=== PATIENT | female | born 1985 | race African-American/Black ===

== ENCOUNTER 2021-01-11 14:12 | Emergency (ER) | payer MEDICAID, SELFPAY ==
[2021-01-11 14:31] VITALS: BP 151/97; PULSE 95; RESP 16; TEMP 36.3; O2SAT 98; BMI 25.1
--- NOTE | 2021-01-11 15:08 | ED_ITS ---
HPI - Skin/Abscess/Foreign Bdy General Chief complaint: Skin/Abscess/Foreign Body Stated complaint: RASH Time Seen by Provider: 01/11/21 15:04 Source: patient Mode of arrival: ambulatory Limitations: no limitations History of Present Illness HPI narrative: 35-year-old female with a past medical history of eczema here with complaints of itching and painful rash to her face and neck x1 week. No fevers, chills, drainage. She was seen at a walk-in urgent care 2 days ago and prescribing triamicolone topical cream. She has been using this but she feels like the rash is only worsening. Related Data Previous Rx's Medication Instructions Recorded clindamycin HCl 300 mg PO BID 7 Days #14 cap 01/11/21 mupirocin 1 appl TOPICAL TID #22 g 01/11/21 prednisone 40 mg PO DAILY #10 tab 01/11/21 Allergies Allergy/AdvReac Type Severity Reaction Status Date / Time No Known Allergies Allergy Unverified 04/03/20 15:42 Review of Systems Review of Systems: Yes all other systems are reviewed and are negative Constitutional: Constitutional: Reports no additional constitutional complaints, Denies body ache(s), Denies chills, Denies fever(s), Denies headache(s) and Denies weakness Eyes: Eyes: Reports no additional eye complaints and Denies change in vision ENT: Reports system reviewed and no additional complaints, except as documented, Denies dizziness, Denies headache(s), Denies nasal congestion, Denies nasal discharge and Denies neck pain Cardiovascular: Cardiovascular: Reports no additional cardiovascular complaints, Denies chest pain, Denies leg edema and Denies dyspnea Respiratory: Respiratory: Reports no additional respiratory complaints, Denies cough and Denies dyspnea Gastrointestinal: Gastrointestinal: Reports no additional gastrointestinal complaints, Denies abdominal pain, Denies diarrhea, Denies nausea and Denies vomiting Genitourinary: Genitourinary: Reports no additional female genitourinary complaints and Denies urinary incontinence Musculoskeletal: Musculoskeletal: Reports no additional musculoskeletal complaints, Denies back pain, Denies arthralgias, Denies joint swelling, Denies neck pain, Denies numbness and Denies tingling Integumentary/Breasts: Skin/Breast: Reports system reviewed and no additional complaints, except as docu and Reports rash Neurologic: Reports system reviewed and no additional complaints, except as documented, Denies Abnormal speech present, Denies dizziness, Denies headache(s), Denies numbness, Denies tingling and Denies weakness PMFSH Past Medical History Attestation statement: The following information was validated with the patient. Source: old records reviewed and nursing notes reviewed Social History Social History Advance Directives: Yes Advance Directives Information Provided: No Advance Directives on File: No Patient : No Physical Exam Vital Signs: Vital Signs: Last Vital Signs Temp 97.3 F 01/11/21 14:31 Pulse 95 01/11/21 14:31 Resp 16 01/11/21 14:31 BP 151/97 H 01/11/21 14:31 Pulse Ox 98 01/11/21 14:31 Body Mass Index 25.1 Const: General: cooperative, healthy appearing, comfortable and no acute distress Orientation/consciousness: patient oriented x3 Limitations: no limitations HENMT: Head: Yes normal to inspection Ears: hearing grossly normal bilatera lly General nose exam: Normal external nose present Face and sinus: Yes normal facial exam Mouth: Normal oral and palatal mucosa present Throat: Yes posterior oropharynx normal Eyes: General: appearance normal, both eyes and all related structures Pupils: Equal, round and reactive pupils present Neck: Neck: Yes normal visual inspection Chest: Chest palpation & inspection: normal inspection of the chest Resp: Effort & Inspection: normal respiratory effort Auscultation: clear to auscultation bilaterally Cardio: Rate: regular rate Rhythm: regular rhythm Peripheral pulses: Peripheral pulses 2+ throughout GI: Inspection: Yes normal to inspection Palpation (GI): Soft to palpation and nontender Auscultation: normal bowel sounds Back/Spine/Pelvis: Thoracic/Lumbar Spine: thoracic and lumbar spine normal to inspection Skin: Other: Neuro: General: patient oriented x3, no focal motor deficits and normal sensation to monofilament Cranial nerves: Yes Equal, round and reactive pupils present Cognition (Neuro): normal cognition Speech: No Abnormal speech present Gait exam (Neuro): Normal gait present Motor exam (neuro): 5/5 motor strength present throughout Extrem: General: Yes normal to inspection Course Course Course Narrative: 35 yo female here with complaints of itching/burning rash to neck/face x 1 week despite topical steroid cream. On exam appears to have underlying contact dermatitis with superimposed bacterial infection. D/w with Dr Bermudez who saw the patient and agrees with plan for steroid burst, oral antibiotics and topical antibiotic ointment. reviewed worrisome signs and symptoms and when to return to the emergency department. Comfortable discharge home. Discharge Plan Discharge Clinical Impression: Cellulitis, Contact dermatitis Patient Disposition: Home, Self-Care Instructions: Contact Dermatitis (ED), Cellulitis (ED) Additional Instructions: keep area moisturized Limit hot water in shower, every other day shower DO no pick at skin Return for fever, worsening rash Prescriptions: New prednisone 20 mg tablet 40 mg PO DAILY Qty: 10 RF: 0 clindamycin HCl 300 mg capsule 300 mg PO BID 7 Days Qty: 14 RF: 0 mupirocin 2 % ointment 1 appl topical TID Qty: 22 RF: 0 Referrals: Physician,Unknown [Primary Care Provider] - 2 days Interventions: ED Discharge Assessment Last Done: 01/11/21 15:22 Discharge Date/Time: 01/11/21 15:24
== END 2021-01-11 15:24 | disposition home or self-care (01) ==
PROVIDERS: Emergency Provider Internal Medicine
DX: L25.9 Unspecified contact dermatitis, unspecified cause (principal); L03.221 Cellulitis of neck
CPT/HCPCS: 99283

== ENCOUNTER 2022-02-06 10:41 | Emergency (ER) | payer MEDICAID, SELFPAY ==
[2022-02-06 11:24] VITALS: BP 142/92; PULSE 79; RESP 18; TEMP 36; O2SAT 100; BMI 23.3
--- NOTE | 2022-02-06 14:58 | ED_ITS ---
HPI - Dental/Oral General Chief complaint: Dental/Oral Stated complaint: Dental Abscess Time Seen by Provider: 02/06/22 13:51 Source: patient Mode of arrival: ambulatory Limitations: no limitations History of Present Illness HPI Narrative: 36-year-old female here with complaints of right upper facial swelling noticed this morning with waking. Patient reports last 2 days she had right upper dental pain. She has tried to call dentist but was unable to get in to see them. She denies any fevers, chills, vision changes, runny nose, sore throat, cough. No difficulty swallowing or breathing. Related Data Previous Rx's Medication Instructions Recorded clindamycin HCl 300 mg capsule 300 mg PO BID 7 days #14 caps 01/11/21 mupirocin 2 % topical ointment 1 appl topical TID #22 grams 01/11/21 prednisone 20 mg tablet 40 mg PO DAILY #10 tabs 01/11/21 clindamycin HCl 300 mg capsule 300 mg PO TID #21 caps 02/06/22 naproxen 500 mg tablet 500 mg PO BID PRN pain #30 tabs 02/06/22 Allergies Allergy/AdvReac Type Severity Reaction Status Date / Time No Known Allergies Allergy Verified 02/06/22 11:27 Review of Systems Review of Systems: Yes all other systems are reviewed and are negative Constitutional: Constitutional: Reports no additional constitutional complaints, Denies body ache(s), Denies chills, Denies fever(s), Denies headache(s) and Denies weakness Eyes: Eyes: Reports no additional eye complaints and Denies change in vision ENT: Reports system reviewed and no additional complaints, except as documented, Reports dental pain, Denies dizziness, Reports facial pain, Denies headache(s), Denies nasal congestion, Denies nasal discharge and Denies neck pain Cardiovascular: Cardiovascular: Reports no additional cardiovascular co mplaints, Denies chest pain, Denies leg edema and Denies dyspnea Respiratory: Respiratory: Reports no additional respiratory complaints, Denies cough and Denies dyspnea Gastrointestinal: Gastrointestinal: Reports no additional gastrointestinal complaints, Denies abdominal pain, Denies diarrhea, Denies nausea and Denies vomiting Genitourinary: Genitourinary: Reports no additional female genitourinary complaints and Denies urinary incontinence Musculoskeletal: Musculoskeletal: Reports no additional musculoskeletal complaints, Denies back pain, Denies arthralgias, Denies joint swelling, Denies neck pain, Denies numbness and Denies tingling Integumentary/Breasts: Skin/Breast: Reports system reviewed and no additional complaints, except as docu and Denies rash Neurologic: Reports system reviewed and no additional complaints, except as documented, Denies Abnormal speech present, Denies dizziness, Denies headache(s), Denies numbness, Denies tingling and Denies weakness PMFSH Past Medical History Attestation statement: The following information was validated with the patient. Source: old records reviewed and nursing notes reviewed Social History Social History Patient Tobacco Use Status: Never used Tobacco Use of substances other than those prescribed or required for medical reasons: No Substance Use Type: Marijuana Advance Directives: No Advance Directives Information Provided: No Physical Exam Vital Signs: Vital Signs: Last Vital Signs Temp 96.8 F 02/06/22 11:24 Pulse 79 02/06/22 11:24 Resp 18 02/06/22 11:24 BP 142/92 H 02/06/22 11:24 Pulse Ox 100 02/06/22 11:24 O2 Del Method 02/06/22 11:24 BMI result Body Mass Index 23.3 Const: General: cooperative, healthy appearing, comfortable and no acute distress Orientation/consciousness: patient oriented x3 Limitations: no limitations HEENT: Head: Yes normal to inspection Head images: 1. There is swelling and tenderness. There is no palpable abscess, induration or fluctuance to drain. Ears: hearing grossly normal bilaterally General nose exam: Normal external nose present Face and sinus: Yes normal facial exam Mouth: Normal oral and palatal mucosa present Teeth and gingiva: caries (Extensive) Teeth image: 1. Tooth is broken. Nerve root is exposed. At the base of the gum line there is redness, swelling and tenderness. There is no obvious abscess Throat: Yes posterior oropharynx normal Eyes: General: appearance normal, both eyes and all related structures Pupils: Equal, round and reactive pupils present Neck: Neck: Yes normal visual inspection Chest: Chest palpation & inspection: normal inspection of the chest Resp: Effort & Inspection: normal respiratory effort Auscultation: clear to auscultation bilaterally Cardio: Rate: regular rate Rhythm: regular rhythm Peripheral pulses: Peripheral pulses 2+ throughout GI: Inspection: Yes normal to inspection Palpation (GI): Soft to palpation and nontender Auscultation: normal bowel sounds Back/Spine/Pelvis: Thoracic/Lumbar Spine: thoracic and lumbar spine normal to inspection Skin: General skin exam: no rashes or lesions noted Neuro: General: patient oriented x3, no focal motor deficits and normal sensation to monofilament Cranial nerves: Yes Equal, round and reactive pupils present Cognition (Neuro): normal cognition Speech: No Abnormal speech present Gait exam (Neuro): Normal gait present Motor exam (neuro): 5/5 motor strength present throughout Extrem: General: Yes normal to inspection Course Course Course Narrative: Reviewed worrisome signs and symptoms of when to return to the emergency department. Comfortable discharge home. MDM - Dental/Oral MDM Narrative Medical decision making narrative: 36-year-old female here with dental pain for few days with waking with right facial swelling. Exam is consistent with cellulitis which is likely secondary to dental infection. There is no drainable abscess seen on exam or felt. Patient is overall nontoxic. She has no trismus. No evidence of Felipe's angina. Will start on oral antibiotics and recommend she follow-up with dental outpatient. Medical Records Attestation: I reviewed the patient's medical records. Lab Data Attestation: I reviewed the patient's lab results. Discharge Plan Discharge Clinical Impression: Dental abscess Patient Disposition: Home, Self-Care Instructions: Dental Abscess (ED) Additional Instructions: Kiana antonio See dental clinic list Prescriptions: New clindamycin HCl 300 mg capsule 300 mg PO TID Qty: 21 0RF naproxen 500 mg tablet 500 mg PO BID PRN (Reason: pain) Qty: 30 0RF No Action prednisone 20 mg tablet 40 mg PO DAILY Qty: 10 0RF clindamycin HCl 300 mg capsule 300 mg PO BID 7 Days Qty: 14 0RF mupirocin 2 % ointment 1 appl topical TID Qty: 22 0RF Referrals: [facility] [Primary Care Provider] - Interventions: ED Discharge Assessment Last Done: 02/06/22 15:13 Discharge Date/Time: 02/06/22 15:13
== END 2022-02-06 15:13 | disposition home or self-care (01) ==
LOC: HO.ED 15:02
PROVIDERS: Emergency Provider Student in an Organized Health Care Education/Training Program
DX: K04.7 Periapical abscess without sinus (principal); K08.89 Other specified disorders of teeth and supporting structures
CPT/HCPCS: 99283

== ENCOUNTER 2024-07-03 09:03 | Outpatient (REF) | payer MEDICAID, SELFPAY ==
[2024-07-03 11:28] LABS: Alanine Aminotransferase 17 U/L (0-31); Albumin Level 3.8 g/dL (3.5-5.0); Alkaline Phosphatase 44 U/L (39-117); Anion Gap 6 (12-20); Aspartate Amino Transferase 23 U/L (5-31); Bilirubin Total 0.5 mg/dL (0.0-1.0); Blood Urea Nitrogen 11 mg/dL (9-16); Calcium 8.5 mg/dL (8.4-10.2); Carbon Dioxide 29 mmol/L (22-29); Chloride 107 mmol/L (96-108); Estimated Glomerular Filt Rate > 60; Glucose Random 67 mg/dL (60-115); Potassium 3.4 mmol/L (3.3-5.1); Sodium 139 mmol/L (135-145); Total Protein 6.5 g/dL (6.5-8.0)
[2024-07-03 11:55] LABS: HBS Num1 > 1000.00 mIU/mL (0-7.99); HBc Num1 0.05 S/CO (0.00-0.79); HBsAGNum1 0.33 S/CO (0.00-0.99); HIV AB/AG Nonreactive (Nonreactive); HIV Num 1 0.06 S/CO (0.00-0.99); Hepatitis B Core Antibody Nonreactive (Nonreactive); Hepatitis B Surface Antigen Negative (Negative); ~HepC Num1 0.08 S/CO (0.00-0.79); ~Hepatitis B Surface Antibody REACTIVE (Nonreactive); ~Hepatitis C Antibody Nonreactive (Nonreactive)
[2024-07-03 11:59] LABS: Syphilis Screen Reactive (Nonreactive)
[2024-07-03 12:01] LABS: Creatinine Urine 98.94 mg/dL
[2024-07-03 16:03] LABS: CT PCR NOT DETECTED (Not Detect.); NG PCR NOT DETECTED (Not Detect.)
[2024-07-17 09:16] LABS: RPR Quantitative Reactive 1:2 (Nonreactive); T.Pallidum Particle Agg Test Reactive (Nonreactive)
== END 2024-07-03 09:04 | disposition home or self-care (01) ==
LOC: HO.HHCL 09:03
PROVIDERS: Visit Provider Nurse Practitioner
DX: Z11.3 Encounter for screening for infections with a predominantly sexual mode of transmission (principal); I10 Essential (primary) hypertension
CPT/HCPCS: 36415; 80053; 82043; 82570; 86592; 86704; 86706; 86780; 86803; 87340; 87389; 87491; 87591

== ENCOUNTER 2024-12-03 12:08 | Outpatient (REF) | payer MEDICAID, SELFPAY ==
--- OUTSIDE RECORDS SUMMARY | 2024-12-03 12:40 | XMS_ITS | Clinical Summary ---
Author Organization [employer] Address [address] [facility] [address] 7t [place] [address] Care Team Providers Care Valver Name Role Phone Jud Freitas NP Primary Care Provider [phone] Allergies Active Allergy Reactions Criticality Noted Date Comments Fish-Derived Products Unknown 09/29/2010 Medications * This document contains information received from the source organization and may not represent a complete record from that organization. Blood Pressure kitIndications:P rimary hypertension 1 each 2 times daily. 1 kit 06/13/20 24 025 Active baclofen (Lioresal) 10 MG tabletIndication s:Musculoskeleta l back pain Take 1 tablet (10 mg) by mouth 3 times daily for 15 days. 45 tablet 06/13/20 24 Active chlorthalidone (Hygroton) 25 MG tabletIndication s:Primary hypertension Take 0.5 tablets (12.5 mg) by mouth Once per day. 30 tablet 3 12/04/19 25 Active hydrOXYzine HCl (Atarax) 25 MG tabletIndication s:Anxiety Take 1 tablet (25 mg) by mouth if needed in the morning and at bedtime for itching. 60 tablet 1 12/04/19 25 Active ibuprofen 800 MG tablet Take 1 tablet (800 mg) by mouth every 8 (eight) hours if needed for moderate pain. 60 tablet 1 12/04/19 25 Active hydrOXYzine HCl (Atarax) 25 MG tabletIndication s:Anxiety Take 1 tablet (25 mg) by mouth if needed in the morning and at bedtime for itching. 60 tablet 1 06/13/20 24 025 Discontinued(Re order (will not trigger notification to Pharmacy)) chlorthalidone (Hygroton) 25 MG tabletIndication s:Primary hypertension Take 0.5 tablets (12.5 mg) by mouth Once per day. 15 tablet 1 06/13/20 24 025 Discontinued(Re order (will not trigger notification to Pharmacy)) Active Problems Problem Noted Date Diagnosed Date History of syphilis 08/23/2024 Overview (08/23/2024): Treated in 2019 with 3 doses of PCN per Katarina with DPH. Titer following this was 1:8 Sensation of plugged ear on right side Assessment & Plan (07/20/2024 10:27 AM EST): Debrox prescribed she will have to come back for ear lavage Non-recurrent acute serous otitis media of right ear 07/20/2024 Assessment & Plan (07/20/2024 10:27 AM EST): Acetaminophen PRN Augmentin for 7 days Sickle cell trait 12/22/2022 Eczema 12/19/2012 Encounters Date Type Department Care Team Description 12/03/2024 11:00 AM EDT Office Visit [facility] [address] [place] [address] [phone] Pain in both thighs (Primary Dx); Primary hypertension; Anxiety; Encounter for other general counseling or advice on contraception 12/03/[address] [facility] [address] [place] [phone] Jud Freitas NP Nurse Triage 09/28/2024 Population Health Risk Score Community Care [facility] ([facility]) Department [address] [place] [address] [phone] Provider, Population Health Generic 09/06/[address] [facility] [address] [place] [phone] Jud Freitas NP Care Coordination ([address] Raegan Moreno telephone call ) 09/06/[address] [facility] [address] [place] [phone] Jud Freitas NP Care Coordination ([address] Raegan Moreno telephone call outreach) from Last 3 Months Immunizations Immunization Administration Dates Next Due DTP 09/16/1991, 9,02/16/1988,1987,1987 Hep B, Adolescent or Pediatric 08/19/1999,1998,01/12/1999 Hib (HbOC) 03/18/1989 IPV 09/16/1991, 9,1987,1987 Influenza, IIV3, injectable 05/01/2008 MMR 03/22/1995,10/25/1988 TD (adult), 2 Lf tetanus tox oid, preservative free, adsorbed 01/02/1999 Tdap 02/19/2019 Family History Medical History Relation Name Comments Asthma Brother Diabetes Maternal Grandmother Sickle cell anemia Mother Relation Name Status Comments Brother Father Maternal Grandmother Mother Social History Tobacco Use Types Packs/Day Years Used Date Smoking Tobacco: Some Days Cigarettes Tobacco Cessation:Ready to Q uit: Not Asked; Counseling Given: Not Answered Alcohol Use Standard Drinks/Week Comments Yes 0 (1 standard drink = 0.6 oz pur e alcohol) Alcohol Answer Date Recorded How often do you have a drink containing alcohol ? 2 06/13/2024 How many drinks containing a lcohol do you have on a typical day when you are drinking? 3 06/13/2024 How often do you have six or more drinks on one occasion? 2 06/13/2024 Depression Answer Date Recorded Patient Health Questionnaire-9 Score 4 06/13/2024 Patient Health Questionnaire-9 Score 4 06/13/2024 Last PHQ-9: Questionnaire Data Not on file 1 08/13/2023 Housing Stability Answer Date Recorded What is your housing situation today? I do not have housing (Staying with others, in a hotel, in a fdc, living outside on the street, on a beach, in a car, or in a park 06/04/[address] you li ve. Do you have problems with any of the following? None of the above 06/04/2024 Food Insecurity Answer Date Recorded Within the past 12 months, y ou worried that your food would run out before you got money to buy more: Sometimes True 2023 Within the past 12 months,th e food you bought just didn't last and you didn't have enough money to get more: Sometimes True 06/05/2024 Transportation Answer Date Recorded In the past 12 months, has l ack of transportation kept you from medical appts, meetings, work or from getting things needed for daily living? No 06/04/2024 Utilities Answer Date Recorded In the past 12 months, has t he electric, gas, oil or water company threatened to shut off services in your home? No 06/04/2024 Depression Answer Date Recorded Patient Health Questionnaire-2 Score 1 06/13/2024 Internet Access Answer Date Recorded Internet Access Q1 Yes 06/04/2024 Internet Access Q2 Not on file 06/04/2024 Comments Unknown Sex and Gender Information Value Date Recorded Sex Assigned at Female 05/17/2022 10:14 AM EDT Legal Sex Female 10:14 AM EDT Gender Identity Female 05/17/2022 10:14 AM EDT Sexual Orientation Choose not to disclose 2021 10:14 AM EDT Last Filed Vital Signs Vital Sign Reading Time Taken Comments Blood Pressure 155/88 12/03/2024 11:40 AM EDT Pulse 69 12/03/2024 11:40 AM EDT Temperature 36.6 ??C (97.9 ??F) 12/03/2024 11:40 AM E DT Respiratory Rate 16 12/03/2024 11:40 AM EDT Oxygen Saturation 99% 12/03/2024 11:40 AM EDT Inhaled Oxygen Concentration - - Weight 64 kg (141 lb) 12/03/2024 11:40 AM EDT Height 163.8 cm (5' 4.5 ) 06/13/2024 2:56 PM EST Body Mass Index 23.83 06/13/2024 2:56 PM EST Plan of Treatment Health Maintenance Due Date Last Done Comments Disability Screening 1987 Family Planning (PISQ) 2002 Pneumococcal Vaccine: Pediatrics (0 to 5 Years) and At-Risk Patients (6 to 49) Years) (1 of 2 - PCV) 2006 Colposcopy 02/05/2022 COVID-19 Vaccine (1 - season) 2024 Influenza Vaccine (#1) 2024 05/01/2008 Pap Smear 02/04/2025 02/04/2022 SDOH Screening 06/05/2025 06/05/2024 Alcohol/Substance Use Screening 06/13/2025 06/13/2024 Depression Screening 06/13/2025 06/13/2024, 06/13/20 24 Tobacco Screening 12/03/2025 12/03/2024 Lipid Panel 10/29/2026 10/29/2021 Cervical Cancer Screening 02/04/2027 HPV/Cotest 02/04/2027 02/04/2022, 03/13/2019 DTaP/Tdap/Td Vaccines (7 - Td or Tdap) 02/19/2029 02/19/2019, 01/02/1999, 09/16/1991, Additional history exists Zoster Vaccines (1 of 2) 2037 RSV Patients and Patients Aged 60 years or older (1 - 1-dose 75+ series) 2062 HIB Vaccines Completed 03/18/1989 IPV Vaccines Completed 09/16/1991, 07/1988, 1987, Additional history exists Hepatitis B Vaccines Completed 08/19/1999, 03/03/1999, 01/12/1999 HIV Screening Completed 07/03/2024, 10/16, 09/20/2019 Hepatitis C Screening Completed 07/03/2024 , 10/29/2021, 09/20/2019 HPV Vaccines Aged Out No longer eligi ble based on patient's age to complete this topic Hepatitis A Vaccines Aged Out No long er eligible based on patient's age to complete this topic Meningococcal B Vaccine Aged Out No l onger eligible based on patient's age to complete this topic Meningococcal Vaccine Aged Out No tayna abel eligible based on patient's age to complete this topic RSV under 20 months Aged Out No longe r eligible based on patient's age to complete this topic Rotavirus Vaccines Aged Out No longer eligible based on patient's age to complete this topic Procedures Procedure Name Priority Date/Time Associated Diagnosis Comments HEPATITIS C AB W/REFL TO HCV RNA, QN, PCR Routine 07/03/2024 9:06 AM EST Screening examination for STI HIV 1/2 ANTIGEN/ANTIBODY, FOURTH GENERATION W/RFL Routine 07/03/2024 9:06 AM EST Screening examination for STI THINPREP IMAGING PAP AND HPV MRNA E6/E7, WITH CT/NG, TRICHOMONAS Routine 02/04/2022 11:36 AM EDT LIPID PANEL, STANDARD Routine 10/29/2021 11:02 AM EDT from Last 3 Months or Most Recently Relevant to Health Maintenance Results * Hepatitis C Antibody with Reflex to HCV, RNA, Quantitative, Real-Time PCR (07/03/2024 9:06 AM EST) Hepatitis C Antibody Nonreactive Nonreactive [facility] Comment:Antibodies to HCV no t detected; does not exclude early acuteHCV infection. Blood Venous blood specimen / Unknown 07/03/2024 9:06 AM EST 07/03/2024 11:00 AM EST Jud Freitas NP LAB BLOOD ORDERABLES Final Resu lt [facility] [address] [place] [phone] * HIV-1/2 Antigen and Antibodies, Fourth Generation, with Reflexes (07/03/2024 9:06 AM EST) HIV AB/AG Nonreactive Nonreactive [facility] Comment:HIV-1 p24 Ag and/or HIV-1/HIV-2 Ab not detected.A test result that is nonreactive does not exclude thepossibility of exposure to or infection with HIV-1 and/orHIV-2. Nonreactive results in this assay for individualswith prior exposure to HIV-1 and/or HIV-2 may be due toantigen and antibody levels that are below the limit ofdetection of this assay.The [employer] HIV Ag/Ab Combo assay result andsupplemental assay results should be interpreted inconjunction with the patient's clinical presentation,history and other laboratory results. If the results areinconsistent with clinical evidence, additional testing issuggested to confirm the result. Blood Venous blood specimen / Unknown 07/03/2024 9:06 AM EST 07/03/2024 11:00 AM EST us Jud Freitas [employer] DESIGNER LAB BLOOD ORDERABLES Final Resu lt [facility] [address] [place] [address] [phone] * (ABNORMAL) THINPREP TIS PAP AND HPV mRNA E6/E7, CT/NG, TRICH (02/04/2022 11:36 AM EDT) Chlamydia trachomatis RNA, TMA, Urogenital NOT DETECTED NOT DETECTED [facility] Clinical Information: None given [facility] COMMENT SEE COMMENT [facility] Comment: The analytical performance characteristics of this assay, when used to test SurePath(TM) specimens have been determined by [employer] The modifications have not been cleared or approved by the FDA. This assay has been validated pursuant to the CLIA regulations and is used for clinical purposes. ?? For additional information, please refer to https://education.[employer]/faq/FPI749 (This link is being provided for information/ educational purposes only.) ?? COMMENT SEE COMMENT [facility] Comment: EXPLANATORY NOTE: ? The Pap is a screening test for cervical cancer. It is ?? not a diagnostic test and is subject to false negative ?? and false positive results. It is most reliable when a ?? satisfactory sample, regularly obtained, is submitted ?? with relevant clinical findings and history, and when ?? the Pap result is evaluated along with historic and ?? current clinical information. ?? COMMENT: This Pap test has been evaluated with computer assisted technology. [facility] Hand Printed Circuit Board Assembler: SEE COMMENT [facility] Comment: ED, CT(ASCP) CT screening location: ?? [facility] ?? [address] [place] [address] ?? [place] [address] General Categorization: EPITHELIAL CELL ABNORMALITY(A) [facility] HPV nRNA E6/E7 Detected(A) Not Detected [facility] Comment: Methodology: Director Market Research-Mediated Amplification This assay detects E6/E7 viral messenger RNA (mRNA) from 14 high-risk HPV types (16,18,31,33,35,39,45,51,52,56,58,59,66,68). ? Cervical sources are required for HPV testing. If a vaginal source from a patient who has had a total hysterectomy with removal of cervix was ?? submitted, please contact the testing laboratory for alternative testing options. ?? For additional information, please refer to http://[employer]/faq/PUS402a4 (This link if provided for information/ educational purposes only.) Interpretation/Res ult: Atypical Squamous Cells of Undetermined Significance (ASC-US)(A) [facility] LMP: IRREG. MENSES W/NEXP [facility] Neisseria gonorrhoeae RNA, TMA, Urogenital NOT DETECTED NOT DETECTED [facility] PATHOLOGIST: SEE COMMENT [facility] Comment: Jacques Sanches M.D. Direct , Board Certified in Anatomic and Clinical Pathology and Cytopathology (electronic signature) Consulting Pathologist [facility] [address] [place] [address] Prev. BX: NONE GIVEN [facility] Prev. PAP: NONE GIVEN [facility] SOURCE: None given [facility] Statement Of Adequacy: SEE COMMENT [facility] Comment: Satisfactory for evaluation. Endocervical/transformation zone component present. Trichomonas vaginalis, QL, TMA, PAP Vial NOT DETECTED NOT DETECTED [facility] Comment: The analytical performance characteristics of this assay have been determined by [employer] The modifications have not been cleared or approved by the FDA. This assay has been validated pursuant to the CLIA regulations and is used for clinical purposes. ?? For additional information, please refer to http://[employer]/ faq/Trichomonastma (This link is being provided for information/ educational purposes only.) ?? 02/04/2022 11:3 6 AM EDT us Smita Javier CNM LAB PATHOLOGY ORDERABLES Final Result [facility] [address] * LIPID PANEL, STANDARD (10/29/2021 11:02 AM EDT) Chol/HDLC Ratio 2.2 <5.0 (calc) [facility] Cholesterol, Total 136 <200 mg/dL [facility] HDL Cholesterol 62 > OR = 50 mg/dL [facility] LDL Cholesterol 53 mg/dL (calc) [facility] Comment: Reference range: <100 ?? Desirable range <100 mg/dL for primary prevention; ?? <70 mg/dL for patients with CHD or diabetic patients ?? with > or = 2 CHD risk factors. ?? LDL-C is now calculated using the Giles ?? calculation, which is a validated novel method providing ?? better accuracy than the Friedewald equation in the ?? estimation of LDL-C. ?? Leonardo PIPER et al. CHARLI. 2013;310(19): 7706-8461 ?? (http://[employer]/faq/GJQ579) Non-HDL Cholesterol 74 <130 mg/dL (calc) [facility] Comment: For patients with diabetes plus 1 major ASCVD risk ?? factor, treating to a non-HDL-C goal of <100 mg/dL ?? (LDL-C of <70 mg/dL) is considered a therapeutic ?? option. Triglycerides 120 <150 mg/dL [facility] 10/29/2021 11:0 2 AM EDT Leigh Monroy [facility] LAB BLOOD ORDERABLES Final Resul t [facility] [address] from Last 3 Months or Most Recently Relevant to Health Maintenance Insurance [employer] Care Teams Valver Relationship Specialty Start Date End Date Jud Freitas NP [address] [place] [phone] PCP - General Family Medicine 06/13/24
--- OUTSIDE RECORDS SUMMARY | 2024-12-03 12:40 | XMS_ITS | Encounter Summary ---
Author Organization [employer] Address [address] [address] 7[address] [place] [address] Care Team Providers Care Track Repairer Name Role Phone Jud Freitas NP Primary Care Provider [phone] Reason for Visit * Reason Onset Date Comments Nurse Triage 07/19/2024 Encounter Details Date Type Department Care Team ([facility] st Contact Info) Description 07/19/2024 Telephone [facility] [address] [place], [place] [phone] Leigh Monroy ANP [address] [place] [address] Nurse Triage Social History Tobacco Use Types Packs/Day Years Used Date Smoking Tobacco: Some Days Cigarettes Alcohol Use Standard Drinks/Week Comments Yes 0 [...] with others, in a hotel, in a group home, living outside on the street, on a [...] not to disclose 2021 10:14 AM EDT documented as of this encounter Miscellaneous Notes * Telephone Encounter - Anat Peck RN - 07/19/2024 2:59 PM EST Called pt. She states that her right ear has been. Full of earwax since last OV for PE. She states that right ear was flushed but that she was supposed to get Debrox ear drops sent to Pharmacy that day for ear wax but never got them sent to Pharmacy. Pt states it still feels like there is earwax and it's sticky in ear. Pt. Requesting the Debrox to be sent to pharmacy and she would like a call back when they are ordered. Please look in chart under Telephone medical question as it looks like unsuccessful impacted cerumen and nurse requested debrox to be sent to Pharmacy. * Telephone Encounter - Mark Sarah - 07/19/2024 2:55 PM EST Symptom: Ear Congestion Without Pain Outcome: Schedule an appointment to be seen within 3 days Reason: This is the only possible outcome for this symptom documented in this encounter Plan of Treatment Not on file documented as of this encounter Visit Diagnoses Not on filedocumented in this encounter Additional Health Concerns Assessment Noted Time PHQ-9 Depression Total Score: 4 06/13/20 24 4:18 PM EST documented as of this encounter Care Teams Track Repairer Relationship Specialty Start Date End Date Jud Freitas NP [address] [place] [address] PCP - General Family Medicine 06/13/24 documented as of this encounter
--- OUTSIDE RECORDS SUMMARY | 2024-12-03 12:40 | XMS_ITS | Encounter Summary ---
Author Organization [employer] Address [address] [facility] 7t [place] [address] Care Team Providers Care Community Outreach Coordinator Name Role Phone Leigh Monroy Primary Care Provider [phone] Jud Freitas NP Primary Care Provider [phone] Encounter Details Date Type Department Care Team (Late st Contact Info) Description 12/01/[address] [facility] [address] [place] [address] Leigh Monroy ANP [address] [place] [address] Social History Tobacco Use Types Packs/Day Years Used Date Smoking Tobacco: Never Assessed Comments Unknown Sex and Gender Information Value Date Recorded Sex Assigned at Female 05/17/2022 10:14 AM EDT Legal Sex Female 10:14 AM EDT Gender Identity Female 05/17/2022 10:14 AM EDT Sexual Orientation Choose not to disclose 2021 10:14 AM EDT documented as of this encounter Plan of Treatment Not on file documented as of this encounter Visit Diagnoses Not on filedocumented in this encounter Care Teams Community Outreach Coordinator Relationship Specialty Start Date End Date Leigh Monroy ANP [address] [place], [place] [phone] PCP - General Family Medicine 09/02/20 06/12/24 Jud Freitas NP [address] [place] [phone] PCP - General Family Medicine 06/13/24 documented as of this encounter
--- OUTSIDE RECORDS SUMMARY | 2024-12-03 12:40 | XMS_ITS | Encounter Summary ---
Author Organization [employer] Address [address] [facility] [address] [place] [address] Care Team Providers Care Unit Secretary Name Role Phone Jud Freitas NP Primary Care Provider [phone] Reason for Visit * Reason Onset Date Comments Nurse Triage 12/03/2024 Encounter Details Date Type Department Care Team ([facility] st Contact Info) Description 12/03/2024 Telephone [facility] [address] [place], [place] [phone] Jud Freitas NP [address] [place] [address] Nurse Triage Social History Tobacco Use Types [...] with others, in a hotel, in a assisted, living outside on the street, on a [...] Telephone Encounter - Anat Peck RN - 12/03/2024 9:05 AM EDT Pt. States that both legs hurt in her thighs x 3 days. Pt. States she had tried katie sims and pain relief but both thighs hurt with walking, trying to climb stairs. Pt. States she has not done any working out or anything that would cause her muscles in her thighs to hurt. No fever. Pt. Will head intowalk in for evaluation. Protocol Used: Leg Pain (Adult) Protocol-Based Disposition: See in Office or Video Visit Today or Tomorrow- Pt. States she will head in to walk in at [facility] now. Video visit offer not recorded Positive Triage Questions: * Patient wants to be seen * Moderate pain (e.g., interferes with normal activities, limping) and present > 3 days * All higher-acuity triage questions were negative Care Advice Discussed: * Reassurance and Education - Leg Pain * Pain Medicines * Telephone Encounter - Brinda Moore - 12/03/2024 8:58 AM EDT Symptom: Leg Pain (both) - Not From Injury Outcome: Schedule an urgent appointment (within 1 hour) or talk to a nurse or provider soon Reason: Trouble walking The caller accepted this outcome. [phone] documented in this encounter Plan of Treatment Not on file documented as of this encounter Visit Diagnoses Not on filedocumented in this encounter Additional Health Concerns Assessment Noted Time PHQ-9 Depression Total Score: 4 06/13/20 24 4:18 PM EST documented as of this encounter Care Teams Unit Secretary Relationship Specialty Start Date End Date Jud Freitas NP [address] [place] [phone] PCP - General Family Medicine 06/13/24 documented as of this encounter
--- OUTSIDE RECORDS SUMMARY | 2024-12-03 12:40 | XMS_ITS | Encounter Summary ---
Author Organization [employer] Address [address] [place] [address] Care Team Providers Care Coremaker Machine Name Role Phone Jud Freitas NP Primary Care Provider [phone] Reason for Referral * Consultation (Routine) - Authorized Specialty Diagnoses / Procedures Referred By Contac t Referred To Contact Obstetrics and Gynecology Diagnoses Encounter for other general counseling or advice on contraception Nolvia De La Cruz MD [address] [place] [address] Phone: tel: fax: Referral ID Status Reason Start Date Expiration Date Visits Requested Visits Authorized [id number] Authorized Specialty Services Required 12/03/2024 12/03/2025 1 1 Reason for Visit * Reason Comments Leg Pain Encounter Details Date Type Department Care Team (Latest Contact Info) Description 12/03/2024 11:00 AM EDT Office Visit [facility] [address] [address] Pain in both thighs (Primary Dx); Primary hypertension; Anxiety; Encounter for other general counseling or advice on contraception Social History Tobacco Use Types Packs/Day Years [...] with others, in a hotel, in a detention, living outside on the street, on a [...] AM EDT documented as of this encounter Last Filed Vital Signs Vital Sign Reading Time Taken Comments Blood Pressure 155/88 12/03/2024 11:40 AM EDT Pulse 69 12/03/2024 11:40 AM EDT Temperature 36.6 ??C (97.9 ??F) 12/03/2024 11:40 AM E DT Respiratory Rate 16 12/03/2024 11:40 AM EDT Oxygen Saturation 99% 12/03/2024 11:40 AM EDT Inhaled Oxygen Concentration - - Weight 64 kg (141 lb) 12/03/2024 11:40 AM EDT Height - - Body Mass Index 23.83 06/13/2024 2:56 PM EST documented in this encounter Plan of Treatment Scheduled Orders Name Type Priority Associated Diagnoses Orde r Schedule Sed Rate by Modified [place] Lab Routine Pain in both thighs Expected: 12/03/2024, Expires: 12/03/2025 Creatine Kinase, Total Lab Routine Pain in both thighs Expected: 12/03/2024, Expires: 12/03/2025 Urinalysis, Complete, with Reflex to Culture Lab Routine Pain in both thighs Expected: 12/03/2024 (Approximate), Expires: 12/03/2025 CBC auto differential Lab Routine Pain in both thighs Expected: 12/03/2024 (Approximate), Expires: 12/03/2025 C-reactive Protein Lab Routine Pain in both thighs Expected: 12/03/2024 (Approximate), Expires: 12/03/2025 Scheduled Referrals Name Type Priority Associated Diagnoses Orde r Schedule Referral to Obstetrics / Gynecology Outpatient Referral Routine Encounter for other general counseling or advice on contraception Expected: 12/03/2024 (Approximate), Expires: 12/03/2025 documented as of this encounter Visit Diagnoses Diagnosis Pain in both thighs- Primary Primary hypertension Unspecified essential hypertension Anxiety Anxiety state, unspecified Encounter for other general counseling or advice on contraception documented in this encounter Additional Health Concerns Assessment Noted Time PHQ-9 Depression Total Score: 4 06/13/20 24 4:18 PM EST documented as of this encounter Care Teams Coremaker Machine Relationship Specialty Start Date End Date Jud Freitas NP [address] [place] [id number] PCP - General Family Medicine 06/13/24 documented as of this encounter
[2024-12-03 12:58] LABS: MANUAL DIFF FLAG NO
[2024-12-03 13:21] LABS: Basophils Percent Auto 0.3 % (0-2); Eosinophils Absolute Auto 0.1 X10*3/uL (0.0-0.4); Eosinophils Percent Auto 1.8 % (0-4); Hematocrit 35.9 % (37.0-47.0); Hemoglobin 12.2 g/dl (12.0-16.0); Imm Gran Abs Auto 0.02 X10*3/uL (0.00-0.03); Imm Gran Pct Auto 0.3 % (0.0-0.4); Lymphocytes Percent Auto 30.7 % (20-40); Mean Corpuscular Hemoglobin 30.7 pg (27.0-33.0); Mean Corpuscular Volume 90.4 fL (80.0-98.0); Mean Platelet Volume 9.6 fL (9.4-12.3); Monocytes Absolute Auto 0.3 X10*3/uL (0.1-1.2); Monocytes Percent Auto 4.9 % (2-11); Platelet Count 298 X10*3/uL (160-400); Red Blood Count 3.97 X10*6/uL (4.20-5.50); Red Cell Distribution Width 12.5 % (11.0-16.0); White Blood Count 6.5 X10*3/uL (4.8-10.8)
[2024-12-03 13:33] LABS: Appearance Urine Clear; Color Urine Yellow; Glucose Urine UA Negative (Negative); Leukocyte Esterase Urine Moderate (2+) (Negative); Nitrite Urine Negative (Negative); PH 6.5 (5.0-9.0); Specific Gravity - Urine 1.015 (1.005-1.025); UMIC TRIGGER UACC YES; Urine Blood Moderate (2+) (Negative); Urine Ketones Negative (Negative); Urine Protein Negative (Neg-Trace)
[2024-12-03 13:43] LABS: Bacteria Urine None Seen (None Seen); Hyaline Casts Urine 0-2 /LPF (0-2); RBC Urine 0-2 /HPF (0-2); UACC Culture Trigger YES
[2024-12-03 14:01] LABS: Erythrocyte Sedimentation Rate 5 MM/HR (0-20)
[2024-12-03 15:00] LABS: Alanine Aminotransferase 34 U/L (0-31); Albumin Level 4.1 g/dL (3.5-5.0); Alkaline Phosphatase 55 U/L (39-117); Anion Gap 9 (12-20); Aspartate Amino Transferase 32 U/L (5-31); Bilirubin Total 0.7 mg/dL (0.0-1.0); Blood Urea Nitrogen 13 mg/dL (9-16); Calcium 9.2 mg/dL (8.4-10.2); Carbon Dioxide 29 mmol/L (22-29); Chloride 106 mmol/L (96-108); Estimated Glomerular Filt Rate > 60; Glucose Random 77 mg/dL (60-115); Sodium 140 mmol/L (135-145)
== END 2024-12-03 12:09 | disposition home or self-care (01) ==
LOC: HO.HHCL 12:08
PROVIDERS: Visit Provider Internal Medicine
DX: M79.651 Pain in right thigh (principal); M79.652 Pain in left thigh
CPT/HCPCS: 36415; 80053; 81001; 82550; 85025; 85652; 86140; 87086

== ENCOUNTER 2025-01-24 10:08 | Outpatient (REF) | payer MEDICAID, SELFPAY ==
[2025-01-24 11:48] LABS: MANUAL DIFF FLAG NO
[2025-01-24 11:55] LABS: Hematocrit 38.1 % (37.0-47.0); Hemoglobin 13.3 g/dl (12.0-16.0); Imm Gran Abs Auto 0.02 X10*3/uL (0.00-0.03); Imm Gran Pct Auto 0.3 % (0.0-0.4); Lymphocytes Absolute Auto 2.1 X10*3/uL (1.2-4.9); Mean Corpuscular HGB Conc 34.9 g/dl (31.0-35.0); Mean Corpuscular Hemoglobin 31.3 pg (27.0-33.0); Mean Corpuscular Volume 89.6 fL (80.0-98.0); NRBC Abs Auto 0.000 X10*3/uL (0.0-0.012); NRBC Pct Auto 0.0 /100WBC (0.0-0.2); Platelet Count 283 X10*3/uL (160-400); Red Blood Count 4.25 X10*6/uL (4.20-5.50); White Blood Count 6.1 X10*3/uL (4.8-10.8)
[2025-01-24 12:55] LABS: Alanine Aminotransferase 19 U/L (0-31); Albumin Level 4.7 g/dL (3.5-5.0); Alkaline Phosphatase 49 U/L (39-117); Anion Gap 10 (12-20); Aspartate Amino Transferase 24 U/L (5-31); Blood Urea Nitrogen 15 mg/dL (9-16); Calcium 9.6 mg/dL (8.4-10.2); Carbon Dioxide 27 mmol/L (22-29); Chloride 104 mmol/L (96-108); Estimated Glomerular Filt Rate > 60; Iron 86 mcg/dL (30-160); Percent Iron Saturation 27 % (15-50); Potassium 3.8 mmol/L (3.3-5.1); Sodium 137 mmol/L (135-145); Total Iron Binding Capacity 322 mcg/dL (228-428); Total Protein 7.7 g/dL (6.5-8.0); Unsaturated Iron Binding 236 ug/dL
[2025-01-26 21:34] LABS: C. trachomatis RNA TMA NOT DETECTED (NOT DETECTED); N. gonorrhoeae RNA TMA NOT DETECTED (NOT DETECTED); Trichomonas (NAAT) DETECTED (NOT DETECTED)
[2025-01-30 20:44] LABS: Anti Nuclear Antibody Pattern Nuclear, Speckled; Anti Nuclear Antibody Screen POSITIVE (NEGATIVE); Anti Nuclear Antibody Titer 1:80 titer
== END 2025-01-24 10:09 | disposition home or self-care (01) ==
LOC: HO.HHCL 10:08
PROVIDERS: Internal Medicine; PCP Nurse Practitioner; Referring Provider Advanced Practice Midwife; Visit Provider Nurse Practitioner
DX: I10 Essential (primary) hypertension (principal); D64.9 Anemia, unspecified; R79.89 Other specified abnormal findings of blood chemistry; R74.8 Abnormal levels of other serum enzymes; M60.859 Other myositis, unspecified thigh; M79.651 Pain in right thigh; M79.652 Pain in left thigh; Z11.3 Encounter for screening for infections with a predominantly sexual mode of transmission; Z12.4 Encounter for screening for malignant neoplasm of cervix
CPT/HCPCS: 36415; 80053; 82550; 83540; 84443; 85025; 86038; 86039; 87491; 87591; 87626; 87661; 88175